=== PATIENT | male | born 1990 | race Caucasian/White ===

== ENCOUNTER 2016-07-18 | Emergency (ER) | payer OTHER ==
[~2016-07-18] VITALS: Ht 172.7 cm; Wt 113.9 kg
[2016-07-18 08:54] VITALS: BP 123/86
== END 2016-07-18 12:26 | disposition home or self-care (01) ==
LOC: EDBD → EME
DX: F10.10 Alcohol abuse, uncomplicated (principal); S00.83XA Contusion of other part of head, initial encounter; F17.200 Nicotine dependence, unspecified, uncomplicated; Y09 Assault by unspecified means
CPT/HCPCS: 70450; 70486; 99281; 99284; J1630; J2060

== ENCOUNTER 2016-07-19 16:43 | Emergency (ER) | payer OTHER ==
[~2016-07-19] VITALS: Ht 175.3 cm; Wt 111.1 kg
[2016-07-19 16:51] VITALS: BP 142/112
[2016-07-19 17:33] LABS: HEMATOCRIT 44.6 % (38.0-50.0); MCH 28.4 PG (29.0-34.0); MCHC 33.6 G/DL (30.0-36.0); MCV 84.3 FL (86-99); MEAN PLAT.VOLUME 10.2 uM^3 (9.0-12.4); PLATELET COUNT 201 K/uL (156-360); RBC DIS.WIDTH-CV 14.2 % (11.8-14.6); RBC DIS.WIDTH-SD 43.4 % (39-53); RED BLOOD COUNT 5.29 M/uL (4.00-5.50); WHITE BLOOD COUNT 7.1 K/uL (4.1-10.2)
[2016-07-19 17:46] LABS: CHLORIDE 107 mEq/L (99-109); POTASSIUM 3.9 mEq/L (3.7-5.4); SODIUM 143 mEq/L (136-147)
[2016-07-19 17:48] LABS: GLUCOSE 120 mg/dL (70-99)
[2016-07-19 17:49] LABS: ANION GAP 12 MEQ/L (2-14)
[2016-07-19 17:50] LABS: TOTAL BILIRUBIN 0.5 mg/dL (0.0-1.0)
[2016-07-19 17:51] LABS: SERUM ETHYL ALCOHOL 289 mg/dL
[2016-07-19 17:52] LABS: ALKALINE PHOSPHATASE 89 IU/L (3-129); GFR ESTIMATE (CALCULATED) > 59 mL/min/
[2016-07-19 17:53] LABS: UREA NITROGEN (BUN) 15 mg/dL (9-23)
== END 2016-07-20 02:19 | disposition home or self-care (01) ==
LOC: EME 16:43
PROVIDERS: Emergency Medicine
DX: F10.129 Alcohol abuse with intoxication, unspecified (principal); F33.9 Major depressive disorder, recurrent, unspecified; F17.200 Nicotine dependence, unspecified, uncomplicated
CPT/HCPCS: 80053; 81003; 85027; 90837; 99281; 99284; G0480